=== PATIENT | male | born 1955 | race Caucasian/White ===

== ENCOUNTER 2022-03-28 12:03 | Inpatient (IN) ==
[2022-03-28 13:11] LABS: Basophils # (auto) 0.04 K/uL (0-0.2); Basophils % (auto) 0.8 %; Eosinophils # (auto) 0.06 K/uL (0-0.50); Eosinophils % (auto) 1.2 %; Hemoglobin 15.2 g/dl (14.0-18.0); Immature Granulocytes # (auto) 0.01 K/uL (0.00-0.02); Immature Granulocytes % (auto) 0.2 %; Lymphocytes # (auto) 1.02 K/uL (1.2-3.4); Lymphocytes % (auto) 20.8 %; Mean Corpuscular Hemoglobin 30.2 pg (25.0-34.0); Mean Corpuscular Hgb Conc 35.3 g/dL (32.0-36.0); Mean Corpuscular Volume 85.5 fL (80.0-100.0); Monocytes # (auto) 0.57 K/uL (0.24-0.82); Monocytes % (auto) 11.6 %; Neutrophils % (auto) 65.4 %; Platelet Count 167 K/uL (130-400); RDW Coefficient of Variation 13.3 % (11.5-14.5); RDW Standard Deviation 41.4 fL (36.4-46.3); Red Blood Count 5.03 M/uL (4.63-6.08)
[2022-03-28 13:31] LABS: INR 3.5 (0.9-1.1); Partial Thromboplastin Ratio 1.5; Partial Thromboplastin Time 40.7 Seconds (21.0-31.0); Prothrombin Time 34.7 Seconds (9.0-12.0)
[2022-03-28 13:40] LABS: Troponin I High Sensitivity 5.7 pg/ml (0-20)
[2022-03-28 14:02] LABS: Albumin Globulin Ratio 1.2 (0.9-2); Albumin Level 4.1 gm/dl (3.4-5.0); BUN Creatinine Ratio 22.7 (10-20); Bilirubin,Total 1.5 mg/dl (0.2-1.0); Calcium 9.1 mg/dl (8.5-10.1); Creatinine Clr Calc Pharmacy 76.9 ml/min; Est GFR (African American) 92.6 ml/min; Est GFR (Non-African American) 79.9 ml/min; Globulin 3.4 gm/dl (2.5-4.0); Magnesium 1.9 mg/dl (1.7-2.4); Potassium 3.8 mmol/L (3.5-5.1); Total Protein 7.5 gm/dl (6.0-8.3)
--- NOTE | 2022-03-28 14:40 | XRay Report ---
XR chest 1V portable HISTORY: Shortness of breath. COMPARISON: Chest 03/03/2019. FINDINGS: There are poststernotomy changes. The cardiac silhouette is mildly enlarged. This remains u nchanged. There is a tortuous thoracic aorta. No focal lung consolidations to suggest pneumonia. No e vidence for pulmonary edema. No pleural effusions. No pneumothorax. IMPRESSION: No acute process. ACT 112: Negative or not required by law. Electronically signed by: Giovanny Benson M.D. 03/28/2022 2:38 PM
[2022-03-28] MEDS ORDERED: PHYTONADIONE 2.5 MG in DEXTROSE 5% 50 ML IV STA (16:19)
--- NOTE | 2022-03-28 16:43 | History & Physical Report ---
Date of Service March 28, 2022 Assessment & Plan (1) Chronotropic incompetence: (2) Bradycardia: (3) History of aortic valve replacement: (4) longterm current use of anticoagulant: (5) HLD (hyperlipidemia): (6) Ascending aortic aneurysm: (7) GERD (gastroesophageal reflux disease): Plan This is a 66-year-old male who has significant past medical history of mechanical aortic valve replacement on meterman anticoagulation with goal INR 2.5-3.0, hyperlipidemia, history of SVT, known ascending aortic aneurysm, history of kidney stones who presents to ED at the referral of cardiology due to abnormal heart monitor results. Pt with sx of worsening SOB, easy fatigability, SEBASTIAN and chest pain for the last month or so. He recently underwent ischemic work-up with stress testing and cardiac catheterization which was negative acute occlusion. Outpatient Zio patch improved concern for sinus bradycardia along with probable AV conduction abnormalities. Was referred to ED for evaluation for pacemaker placement. Chronotropic incompetence Sinus bradycardia History of mechanical aortic valve on long-term anticoagulation, goal INR 2.5- 3.0 RBBB Admit to PCU N.p.o. after midnight INR 3.5, discussed with cardiology at bedside and will administer 2.5 mg of IV vitamin K INR in a.m. to determine if INR at goal for pacemaker placement, if not may need additional Vit K Plan pacemaker procedure tomorrow at 1400 hold warfarin this evening - home regimen 7.5 mg Friday, 5 mg all other days, follows [facility] HLD previously on pravastatin, but currently not taking due to lower extremity weakness started CoQ10 instead will defer to cards if they want him to restart his pravastatin post op Glaucoma continue eye gtts Hyperbilirubinemia 1.5, obtain direct bili no abd pain, lfts otherwise unremarkable repeat in a.m. Gerd continue PPI pepcid PRN DVT ppx: pt on warfarin, scds Dispo: PCU, pacemaker procedure tomorrow FULL CODE PCP: Ubaldo Pt was seen and examined in collaboration with Dr. Michael, please see addendum Case discussed with Dr. Gee at bedside. Pt , Mary Olson, at bedside. All questions were answered. History of Present Illness Chief Complaint: Referred by cardiology due to abnormal heart monitor. Primary Care Provider: Kiley Conner, DO This is a 66-year-old male who has significant past medical history of mechanical aortic valve replacement on meterman anticoagulation with goal INR 2.5-3.0, hyperlipidemia, history of SVT, known ascending aortic aneurysm, history of kidney stones who presents to ED at the referral of cardiology due to abnormal heart monitor results. Patient has been experiencing increasing shortness of breath, bradycardia, easy fatigability and dyspnea on exertion. He has been following cardiology and underwent stress testing which showed decreased heart rate response to exercise and also possible ischemia. He then underwent cardiac catheterization which revealed widely patent coronary arteries with minor luminal irregularities. Post cardiac catheterization he was titrated off of his metoprolol which he is now completely off of. Since his heart catheterization he continues to experience episodes of bradycardia with heart rates mostly in the 40s with associated increased fatigue and shortness of breath. He also complains of increased indigestion and belching and is wonderin g if this is related. He further complains of lower extremity muscle weakness after initiation of pravastatin and this was discontinued in favor of co-Q10. A Zio patch was placed and after further review revealed episodes of AV conduction abnormalities. Because of this he was referred to ED for possible evaluation for pacemaker placement. In ED he did remain hemodynamically stable although he was bradycardic. Blood pressure was mildly elevated. His CBC and CMP was generally unremarkable, Mag was 1.9. Chest x-ray showed no acute process. EKG revealed sinus bradycardia at 46 bpm with right bundle branch block. Allergies Allergy/AdvReac Type Severity Reaction Status Date / Time Zbuiqhn-VDL-XeG Reductase AdvReac Weakness Unverified 12/03/19 17:04 Inhibitor [Ierwici-Rlc-Pmb Reductase Inhibitor] Home Medications Medication Instructions Recorded Confirmed Type amoxicillin 500 mg capsule 2,000 mg PO UD PRN dental work 03/28/22 03/28/22 History coenzyme Q10 200 mg capsule (Co 200 mg PO DAILY 03/28/22 03/28/22 History Q-10) cyanocobalamin (vitamin B-12) 500 500 mcg PO DAILY 03/28/22 03/28/22 History mcg tablet (Vitamin B-12) famotidine 20 mg tablet (Pepcid AC) 20 mg PO BID PRN Heartburn 03/28/22 03/28/22 History fexofenadine 180 mg tablet 180 mg PO DAILY 03/28/22 03/28/22 History fluticasone propionate 50 2 spray intranasal DAILY 03/28/22 03/28/22 History mcg/actuation nasal spray,suspension latanoprost 0.005 % eye drops 1 drp ophthalmic (eye) PM 03/28/22 03/28/22 History pantoprazole 20 mg tablet,delayed 20 mg PO DAILY 03/28/22 03/28/22 History release tamsulosin 0.4 mg capsule 0.4 mg PO DAILY 03/28/22 03/28/22 History triamcinolone acetonide 0.1 % 0.1 applic topical BID PRN Rash 03/28/22 03/28/22 History topical cream warfarin 5 mg tablet 5 mg PO SUTUTHSA 03/28/22 03/28/22 History warfarin 5 mg tablet 7.5 mg PO MOWEFR@1600 03/28/22 03/28/22 History Past Med/Surg History Medical History Aortic regurgitation "s/p AVR 1989" Ascending aortic aneurysm "stable 4.6 cm" Dizziness GERD (gastroesophageal reflux disease) HLD (hyperlipidemia) 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 SVT (supraventricular tachycardia) Surgical History History of aortic valve replacement "1989" Hx of colonoscopy Hx of cystoscopy Family History Mother Myocardial infarction Father Lung cancer Myocardial infarction Other Cardiomyopathy Social History Smoking Status: Never smoker Hx Alcohol Use: Yes Alcohol type: beer, wine and hard liquor Alcohol Intake Frequency Comment: rare Hx Substance Use: No Preferred Language: Belarusian Communication Ability: Effective 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 Beliefs That Will Affect Care: None Current Living Situation: Spouse Other Information That Helps Us Care for You: No Feels Safe at Home: Yes Safety Concerns: Feels Safe At This Time Assistive Devices: Glasses Review of Systems Review of Systems: All systems reviewed & are unremarkable except as noted in HPI & below Physical Exam Physical Exam: Constitutional: WD/WN, vitals as above, NAD, sitting up in bed, pleasant, conversing easily Head: Normocephalic, Atraumatic Eyes: PERRL, conjunctivae normal, anicteric sclerae ENMT: external ear and nose normal, oropharynx normal Neck: trachea midline, no thyromegaly normal visual inspection Respiratory: normal respiratory effort, lungs clear to auscultation, no wheeze, rales, rhonchi. Normal insp/exp effort, no accessory muscle use Cardiovascular: RRR, +AV mech click, no edema Vessels: no JVD or carotid bruit Chest: normal inspection of chest Abdomen: normal bowel sounds, soft, nontender, no hepatosplenomegaly Musculoskeletal: no cyanosis or clubbing, extremities motor strength 5/5 Skin: no rashes, warm and dry normal turgor Neurologic: PERRL, EOMI, accommodation nl, no face palsy, no dysarthria CN's II-XI intact bilaterally and moves all extremities Psychiatric: A+Ox3, euthymic affect Lymphatic: no cervical or axillary lymphadenopathy : deferred Results & Data Results & Data ([facility]) Vital Signs (Past 12 Hours) Vital Signs Temp Pulse Pulse Resp BP BP Pulse Ox 03/28/22 16:23 49 L 18 162/84 H 100 03/28/22 15:40 64 23 95 03/28/22 15:30 72 22 96 03/28/22 15:30 149/92 H 03/28/22 15:20 71 22 95 03/28/22 15:10 48 L 21 95 03/28/22 15:00 70 20 96 03/28/22 15:00 149/96 H 03/28/22 14:50 72 19 95 03/28/22 14:40 46 L 18 97 03/28/22 14:30 44 L 19 96 03/28/22 14:30 159/77 H 03/28/22 14:20 41 L 21 97 03/28/22 14:10 65 18 96 03/28/22 14:02 65 18 97 03/28/22 16:04 45 L 18 142/72 H 97 03/28/22 16:09 03/28/22 12:20 36.7 C 47 L 16 150/78 H 96 O2 Del Method 03/28/22 16:23 Room Air 03/28/22 15:40 03/28/22 15:30 03/28/22 15:30 03/28/22 15:20 03/28/22 15:10 03/28/22 15:00 03/28/22 15:00 03/28/22 14:50 03/28/22 14:40 03/28/22 14:30 03/28/22 14:30 03/28/22 14:20 03/28/22 14:10 03/28/22 14:02 03/28/22 16:04 03/28/22 16:09 Room Air 03/28/22 12:20 Room Air Diagnostic Findings Chest X-Ray 03/28/22 12:25 XR chest 1V portable HISTORY: Shortness of breath. COMPARISON: Chest 03/03/2019. FINDINGS: There are poststernotomy changes. The cardiac silhouette is mildly enlarged. This remains unchanged. There is a tortuous thoracic aorta. No focal lung consolidations to suggest pneumonia. No evidence for pulmonary edema. No pleural effusions. No pneumothorax. IMPRESSION: No acute process. ACT 112: Negative or not required by law. Electronically signed by: Giovanny Benson M.D. 03/28/2022 2:38 PM Stress Echo: 02/25/22 LVEF 55 to 59%, LV wall thickness mildly increased, aortic valve mechanical prosthesis present, physiologic intra valvular aortic regurg is present, mild mitral regurg, mild tricuspid regurg, aortic root is borderline enlarged at 3.8 cm, ascending aorta is moderately enlarged at 4.6 cm Date of Service March 01, 2022 DICTATED BY:Elias Ayala, DO Cardiac Cath Report Cardiac Cath Report Procedure: 1. Coronary angiography History: This is a 66-year-old male patient who has had a mechanical aortic valve since the related to bicuspid aortic valve. Recently he has been having some activity related chest pain and underwent an exercise stress echocardiogram and it was abnormal. He has been referred for cardiac catheterization. Procedure summary: After informed consent was obtained the patient was brought to the cardiac catheterization lab where access was obtained using a retrograde Salinger technique from the right radial artery. Preformed 5 Turkish diagnostic catheters were utilized for the coronary angiograms. 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 ACC data: Start time 8:28 AM End time 8:43 AM Opening aortic pressure 109/55 Closing aortic pressure 134/85 LV pressurevalve not crossed Sedation 1 mg intravenous Versed IV fluid 80 cc normal saline Contrast 104 cc Optiray Fluoroscopy time 5.3 minutes Radiation 1240 mGy DAP 129.57 Jaramillo per centimeter squared Right dominant system AUC score 9 Coronary angiography: The coronary anatomy is large in diameter. Injections into the right coronary artery reveal it to be widely patent. Injections in the left coronary artery revealed the left main trunk to be widely patent the left circumflex system consists principally of a large first marginal branch and a smaller second and third marginal branches. The left circumflex system is widely patent. The LAD extends only to the apex of the heart. The LAD gives off a large first diagonal branch and a second smaller diagonal branch. There is minor coronary artery disease at the branch point of the first diagonal branch and LAD however, the LAD is widely patent. Summary: Widely patent coronary anatomy with minor coronary artery disease of the mid LAD as outlined above. Recommendations: Medical management of the patient's coronary artery disease. Medications Administered Medication List Discontinued Medications Phytonadione 2.5 mg/ Dextrose 50.25 mls @ 100.5 mls/hr IV NOW STA Stop: 03/28/22 16:48 Last Admin: 03/28/22 17:21 Dose: 100.5 mls/hr Documented By: KRUPA COVID-19 Results Results COVID-19 Adm Lab Results: RBC 5.03 M/uL (4.63-6.08) 03/28/22 WBC 4.90 K/ul (4.8-10.8) 03/28/22 Hgb 15.2 g/dl (14.0-18.0) 03/28/22 Hct 43.0 % (40.1-51.0) 03/28/22 Plt Count 167 K/uL (130-400) 03/28/22 Neutrophils (%) (Auto) 65.4 % 03/28/22 Lymphocytes (%) (Auto) 20.8 % 03/28/22 Monocytes # (Auto) 0.57 K/uL (0.24-0.82) 03/28/22 Eosinophils # (Auto) 0.06 K/uL (0-0.50) 03/28/22 Immature Granulocyte % (Auto) 0.2 % 03/28/22 Neutrophils # (Auto) 3.20 K/uL (1.4-6.5) 03/28/22 Lymphocytes # (Auto) 1.02 K/uL (1.2-3.4) L 03/28/22 Monocytes # (Auto) 0.57 K/uL (0.24-0.82) 03/28/22 Eosinophils # (Auto) 0.06 K/uL (0-0.50) 03/28/22 Basophils # (Auto) 0.04 K/uL (0-0.2) 03/28/22 Immature Granulocyte # (Auto) 0.01 K/uL (0.00-0.02) 2 Na 139 mmol/L (136-145) 03/28/22 K 3.8 mmol/L (3.5-5.1) 03/28/22 Cl 107 mmol/L (98-107) 03/28/22 CO2 25 mmol/L (21-32) 03/28/22 Anion Gap 7 (3-11) 03/28/22 BUN 22 mg/dl (6-23) 03/28/22 Creatinine 0.97 mg/dl (0.6-1.4) 03/28/22 BUN/Creatinine Ratio 22.7 (10-20) H 03/28/22 Glucose Level 112 mg/dl (70-99(Fasting)) H 03/28/22 Ca 9.1 mg/dl (8.5-10.1) 03/28/22 Total Bilirubin 1.5 mg/dl (0.2-1.0) H 03/28/22 Direct Bilirubin 0.2 mg/dl (0-0.2) 03/28/22 AST/SGOT 23 U/L (13-39) 03/28/22 ALT/SGPT 20 U/L (7-52) 03/28/22 Alkaline Phosphatase 57 U/L (34-104) 03/28/22 Total Protein 7.5 gm/dl (6.0-8.3) 03/28/22 Albumin 4.1 gm/dl (3.4-5.0) 03/28/22 Globulin 3.4 gm/dl (2.5-4.0) 03/28/22 Albumin/Globulin Ratio 1.2 (0.9-2) 03/28/22 PTT 40.7 Seconds (21.0-31.0) H 03/28/22 INR 3.5 (0.9-1.1) H 03/28/22 SARS-CoV-2, RNA, NAAT NEGATIVE (NEGATIVE) 03/28/22 Chest X-Ray 03/28/22 Code Status & VTE Plan Code Status FULL CODE VTE Prophylaxis Plan VTE Prophylaxis will be ordered: Yes Supervising Physician Co-Signing Physician Notes Pt seen and examined by me, care coordinated w/ B. Solo BAPTISTE, pls refer to her note above for further detail. Pt is a 66-year-old M w/ hx of mechanical aortic valve replacement on shelter anticoagulation with goal INR 2.5-3.0, hyperlipidemia, history of SVT, known ascending aortic aneurysm, history of kidney stones who presents to ED at the referral of cardiology due to abnormal heart monitor results. Pt has had worsening shortness of breath, dyspnea on exertion and chest pain for the last month or so. He has been following cardiology and underwent stress testing which showed decreased heart rate response to exercise and also possible ischemia. He also underwent cardiac cath showing Widely patent coronary anatomy with minor coronary artery disease of the mid LAD. Zio patch monitor demonstrates persistent bradycardia and occasional high degree AV block. He was referred to ED for evaluation for pacemaker placement. Currently patient is lying in bed, in no acute distress. He is alert oriented answering questions appropriately. Bradycardic. Mechanical valve sound noted. Lungs are clear to auscultation bilaterally. Pt was seen by cardiology, and it is planned for pacemaker placement tomorrow. INR elevated due to anticoagulation. Vitamin K provided. Repeat INR overnight. Turn Laster aware. MD Alec
[2022-03-28] MEDS ORDERED: ALUMINUM/MAGNESIUM SUSP 30 ML UDC PO PRN (17:00)
[2022-03-28] MEDS ORDERED: FAMOTIDINE 20 MG TAB PO PRN (17:00)
[2022-03-28] MEDS ORDERED: ONDANSETRON INJ 2 MG/ML 2 ML VIAL IV PRN (17:00)
[2022-03-28] MEDS ORDERED: MAGNESIUM HYDROXIDE SUSP 30 ML UDC PO PRN (17:00)
[2022-03-28] MEDS ORDERED: POLYETHYLENE (MIRALAX) 17 GM PACK PO PRN (17:00)
[2022-03-28] MEDS ORDERED: POTASSIUM CHLORIDE CRTAB 20 MEQ TABCR PO STA (17:16)
[2022-03-28] MEDS ORDERED: MAGNESIUM SULFATE / D5W 1 GM/100 ML BAG IV ONE (17:16)
[2022-03-28] MEDS ORDERED: PROMETHAZINE HCL 6.25 MG in SODIUM CHLORIDE 0.9% 50 ML IV PRN (17:19)
--- NOTE | 2022-03-28 17:21 | Cardiology Consultation ---
Date of Consultation March 28, 2022 Assessment & Plan (1) Bradycardia: (2) Chronotropic incompetence: (3) History of aortic valve replacement: (4) Ascending aortic aneurysm: Plan Patient is a 66-year-old male with longstanding cardiac issues including prior remote aortic valve replacement with mechanical prosthesis functioning normally. Patient's had recent symptoms of marked fatigue exertional dyspnea and findings consistent with chronotropic incompetence, symptomatic bradycardia as well as intermittent AV block on recent event monitor. Plan: Patient will be admitted onto telemetry with anticipated pacemaker insertion this admission. EP already consulted INR is mildly elevated we will give 2.5 mg vitamin K today repeat INR in a.m. N.p.o. after midnight with anticipated procedure tomorrow afternoon Discussed in detail with patient and History of Present Illness Reason for Consultation: Bradycardia, chronotropic incompetence Requesting Physician: Dr. Michael Attending Physician: Nav Michael MD History of Present Illness Patient is a 66-year-old male with ongoing issues which include 1. Symptomatic bradycardia, chronotropic incompetence 2. Status post aortic valve replacement 1989, mechanical prosthesis 3.Minimal coronary atherosclerosis by cardiac catheterization February 2022 4. Right bundle branch block 5. Dilated ascending aorta 6. Renal lithiasis. Patient presents now with persistent symptoms of fatigue especially with exertion and marked bradycardia on home monitors. He recently underwent extensive evaluation including cardiac catheterization. Zio patch monitor demonstrates persistent bradycardia and occasional high degree AV block. Patient significantly symptomatic with marked fatigue with exertion more than 100 feet. Occasional lightheadedness but no syncope. No fevers chills or on explained infection. No bleeding difficulties. Appetite and weight are generally stable. Tolerating current medical therapies. Appropriately anticoagulated Right radial access site from recent cardiac catheterization well-healed Allergies Allergy/AdvReac Type Severity Reaction Status Date / Time Vykjcsy-XAS-XwD Reductase AdvReac Weakness Unverified 12/03/19 17:04 Inhibitor [Vjfcciu-Pyj-Dcz Reductase Inhibitor] Home Medications Medication Instructions Recorded Confirmed Type amoxicillin 500 mg capsule 2,000 mg PO UD PRN dental work 03/28/22 03/28/22 History coenzyme Q10 200 mg capsule (Co 200 mg PO DAILY 03/28/22 03/28/22 History Q-10) cyanocobalamin (vitamin B-12) 500 500 mcg PO DAILY 03/28/22 03/28/22 History mcg tablet (Vitamin B-12) famotidine 20 mg tablet (Pepcid AC) 20 mg PO BID PRN Heartburn 03/28/22 03/28/22 History fexofenadine 180 mg tablet 180 mg PO DAILY 03/28/22 03/28/22 History fluticasone propionate 50 2 spray intranasal DAILY 03/28/22 03/28/22 History mcg/actuation nasal spray,suspension latanoprost 0.005 % eye drops 1 drp ophthalmic (eye) PM 03/28/22 03/28/22 History pantoprazole 20 mg tablet,delayed 20 mg PO DAILY 03/28/22 03/28/22 History release tamsulosin 0.4 mg capsule 0.4 mg PO DAILY 03/28/22 03/28/22 History triamcinolone acetonide 0.1 % 0.1 applic topical BID PRN Rash 03/28/22 03/28/22 History topical cream warfarin 5 mg tablet 5 mg PO SUTUTHSA 03/28/22 03/28/22 History warfarin 5 mg tablet 7.5 mg PO MOWEFR@1600 03/28/22 03/28/22 History Patient History Medical History Aortic regurgitation "s/p AVR 1989" Ascending aortic aneurysm "stable 4.6 cm" Dizziness GERD (gastroesophageal reflux disease) HLD (hyperlipidemia) 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 SVT (supraventricular tachycardia) Surgical History History of aortic valve replacement "1989" Hx of colonoscopy Hx of cystoscopy Family History Mother Myocardial infarction Father Lung cancer Myocardial infarction Other Cardiomyopathy Social History Smoking Status: Never smoker Hx Alcohol Use: Yes Alcohol type: beer, wine and hard liquor Alcohol Intake Frequency Comment: rare Hx Substance Use: No Preferred Language: Spanish Communication Ability: Effective 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 Beliefs That Will Affect Care: None Current Living Situation: Spouse Other Information That Helps Us Care for You: No Feels Safe at Home: Yes Safety Concerns: Feels Safe At This Time Assistive Devices: Glasses Review of Systems Review of Systems: All systems reviewed & are unremarkable except as noted in HPI & below Physical Exam Constitutional: WD/WN, vitals as above no acute distress Eyes: PERRL, conjunctivae normal, anicteric sclerae ENMT: external ear and nose normal, oropharynx normal Neck: trachea midline, no thyromegaly Respiratory: Few crackles right base that clear with cough otherwise clear Cardiovascular: Rate/Rhythm: regular rate, regular rhythm and + bradycardic Palpation: normal PMI Vessels: radial pulses present (Right radial access site intact); no JVD Extremities: no edema Roosevelt mechanical valve sounds with grade 1/6 systolic murmur no diastolic murmur Gastrointestinal (Abdomen): normal bowel sounds, soft, nontender, no hepatosplenomegaly Musculoskeletal: no cyanosis or clubbing, extremities motor strength 5/5 Results & Data ([facility]) Vital Signs (Past 12 Hours) Vital Signs Temp Pulse Pulse Resp BP BP Pulse Ox 03/28/22 17:02 03/28/22 17:02 36.8 C 42 L 18 161/82 H 96 03/28/22 16:23 49 L 18 162/84 H 100 03/28/22 15:40 64 23 95 03/28/22 15:30 72 22 96 03/28/22 15:30 149/92 H 03/28/22 15:20 71 22 95 03/28/22 15:10 48 L 21 95 03/28/22 15:00 70 20 96 03/28/22 15:00 149/96 H 03/28/22 14:50 72 19 95 03/28/22 14:40 46 L 18 97 03/28/22 14:30 44 L 19 96 03/28/22 14:30 159/77 H 03/28/22 14:20 41 L 21 97 03/28/22 14:10 65 18 96 03/28/22 14:02 65 18 97 03/28/22 16:04 45 L 18 142/72 H 97 03/28/22 16:09 03/28/22 12:20 36.7 C 47 L 16 150/78 H 96 O2 Del Method 03/28/22 17:02 Room Air 03/28/22 17:02 Room Air 03/28/22 16:23 Room Air 03/28/22 15:40 03/28/22 15:30 03/28/22 15:30 03/28/22 15:20 03/28/22 15:10 03/28/22 15:00 03/28/22 15:00 03/28/22 14:50 03/28/22 14:40 03/28/22 14:30 03/28/22 14:30 03/28/22 14:20 03/28/22 14:10 03/28/22 14:02 03/28/22 16:04 03/28/22 16:09 Room Air 03/28/22 12:20 Room Air Laboratory Results Laboratory Results - last 24 hr 03/28/22 03/28/22 03/28/22 12:55 12:55 12:55 WBC 4.90 RBC 5.03 Hgb 15.2 Hct 43.0 MCV 85.5 MCH 30.2 MCHC 35.3 RDW Std Deviation 41.4 RDW Coeff of Wilver 13.3 Plt Count 167 MPV 10.0 Immature Gran % (Auto) 0.2 Neut % (Auto) 65.4 Lymph % (Auto) 20.8 Barron % (Auto) 11.6 Eos % (Auto) 1.2 Baso % (Auto) 0.8 Neut # (Auto) 3.20 Lymph # (Auto) 1.02 L Barron # (Auto) 0.57 Eos # (Auto) 0.06 Baso # (Auto) 0.04 Immature Gran # (Auto) 0.01 PT 34.7 H INR 3.5 H APTT 40.7 H PTT Ratio 1.5 Sodium 139 Potassium 3.8 Chloride 107 Carbon Dioxide 25 Anion Gap 7 BUN 22 Creatinine 0.97 Est Cr Clr Drug Dosing 76.9 Est GFR ( Amer) 92.6 Est GFR (Non-Af Amer) 79.9 BUN/Creatinine Ratio 22.7 H Glucose 112 H Calcium 9.1 Magnesium 1.9 Total Bilirubin 1.5 H AST 23 ALT 20 Alkaline Phosphatase 57 Troponin I High Sens 5.7 Total Protein 7.5 Albumin 4.1 Globulin 3.4 Albumin/Globulin Ratio 1.2 SARS-CoV-2, RNA, NAAT 03/28/22 14:57 WBC RBC Hgb Hct MCV MCH MCHC RDW Std Deviation RDW Coeff of Wilver Plt Count MPV Immature Gran % (Auto) Neut % (Auto) Lymph % (Auto) Barron % (Auto) Eos % (Auto) Baso % (Auto) Neut # (Auto) Lymph # (Auto) Barron # (Auto) Eos # (Auto) Baso # (Auto) Immature Gran # (Auto) PT INR APTT PTT Ratio Sodium Potassium Chloride Carbon Dioxide Anion Gap BUN Creatinine Est Cr Clr Drug Dosing Est GFR ( Amer) Est GFR (Non-Af Amer) BUN/Creatinine Ratio Glucose Calcium Magnesium Total Bilirubin AST ALT Alkaline Phosphatase Troponin I High Sens Total Protein Albumin Globulin Albumin/Globulin Ratio SARS-CoV-2, RNA, NAAT NEGATIVE Diagnostic Findings Zio patch event monitor reported 03/28/2022 A Zio patch XT monitor was worn for 7 days ranging from 03/15/2022 until 03/22/2022 for the evaluation of bradycardia. Patient had a min HR of 39 bpm, max HR of 156 bpm, and avg HR of 69 bpm. Predominant underlying rhythm was Sinus Rhythm. First Degree AV Block was present. Bundle Branch Block/IVCD was present. 1 run of Ventricular Tachycardia occurred lasting 4 beats with a max rate of 156 bpm (avg 110 bpm). 798 episode(s) of AV Block (2nd Mobitz II, High Grade and 3rd) occurred, lasting a total of 2 days 17 hours. AV Block (2nd Mobitz II and High Grade) and AV Block (3rd) were detected within +/- 45 seconds of symptomatic patient event(s). Isolated SVEs were rare (<1.0%), and no SVE Couplets or SVE Triplets were present. Isolated VEs were rare (<1.0%), VE Couplets were rare (<1.0%), and no VE Triplets were present. Ventricular Bigeminy and Trigeminy were present. MD notification criteria for Complete Heart Block, Symptomatic Second Degree AV Block Mobitz II and High Grade AV Block met - report posted prior to notification per account request (DI). Sixty-four patient triggered events and 50 diary events were submitted that correlated with atrial ventricular block with ventricular rates ranging from 42 beats per minute to 116 beats per minute, supraventricular ectopic beats, and ventricular ectopic beats. ECG Additional Comments: EKG 03/28/2022: Sinus bradycardia with right bundle branch block rate 46 bpm
--- NOTE | 2022-03-28 18:52 | Emergency Department Note ---
History of Present Illness General Chief Complaint: Shortness of Breath/Dyspnea Stated Complaint: DR REF SOB HIGH PULSE RATE Time Seen by Provider: 03/28/22 13:43 History of Present Illness Provider Complaint: chest pain Onset (ago): week(s) Onset (Weeks): 2 Duration: intermittent Onset: during rest Pain Location: substernal Pain Radiation: none Current Pain Intensity: 0 Quality: + aching Relieved By: + nothing Exacerbated By: + nothing Context: no recent illness, no recent surgery, no recent travel, no trauma/injury or no history of DVT/PE Associated symptoms: + dyspnea and + palpitations; no nausea, no vomiting, no diaphoresis, no syncope, no fever, no cough or no leg swelling Home Medications Medication Instructions Recorded Confirmed Type amoxicillin 500 mg capsule 2,000 mg PO UD PRN dental work 03/28/22 03/28/22 History coenzyme Q10 200 mg capsule (Co 200 mg PO DAILY 03/28/22 03/28/22 History Q-10) cyanocobalamin (vitamin B-12) 500 500 mcg PO DAILY 03/28/22 03/28/22 History mcg tablet (Vitamin B-12) famotidine 20 mg tablet (Pepcid AC) 20 mg PO BID PRN Heartburn 03/28/22 03/28/22 History fexofenadine 180 mg tablet 180 mg PO DAILY 03/28/22 03/28/22 History fluticasone propionate 50 2 spray intranasal DAILY 03/28/22 03/28/22 History mcg/actuation nasal spray,suspension latanoprost 0.005 % eye drops 1 drp ophthalmic (eye) PM 03/28/22 03/28/22 History pantoprazole 20 mg tablet,delayed 20 mg PO DAILY 03/28/22 03/28/22 History release tamsulosin 0.4 mg capsule 0.4 mg PO DAILY 03/28/22 03/28/22 History triamcinolone acetonide 0.1 % 0.1 applic topical BID PRN Rash 03/28/22 03/28/22 History topical cream warfarin 5 mg tablet 5 mg PO SUTUTHSA 03/28/22 03/28/22 History warfarin 5 mg tablet 7.5 mg PO MOWEFR@1600 03/28/22 03/28/22 History Allergies Allergy/AdvReac Type Severity Reaction Status Date / Time Ldhsnoa-LXR-PtM Reductase AdvReac Weakness Unverified 12/03/19 17:04 Inhibitor [Qvpljld-Hdb-Ecu Reductase Inhibitor] Past Med/Surg History Medical History Aortic regurgitation "s/p AVR 1989" Ascending aortic aneurysm "stable 4.6 cm" Dizziness GERD (gastroesophageal reflux disease) HLD (hyperlipidemia) 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 SVT (supraventricular tachycardia) Surgical History History of aortic valve replacement "1989" Hx of colonoscopy Hx of cystoscopy Family History Mother Myocardial infarction Father Lung cancer Myocardial infarction Other Cardiomyopathy Social History Smoking Status: Never smoker Hx Alcohol Use: Yes Alcohol type: beer, wine and hard liquor Alcohol Intake Frequency Comment: rare Hx Substance Use: No Preferred Language: Hungarian Communication Ability: Effective 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 Beliefs That Will Affect Care: None Current Living Situation: Spouse Other Information That Helps Us Care for You: No Feels Safe at Home: Yes Safety Concerns: Feels Safe At This Time Assistive Devices: Glasses Review of Systems A total of 10 systems reviewed and were otherwise negative Physical Exam Vital Signs Vital Signs - 24 hr 03/28/22 12:20 03/28/22 14:02 03/28/22 14:10 Temperature 36.7 C Temperature Source Temporal Artery Scan Pulse Rate 47 L 65 65 Pulse Rate from SpO2 Sensor 65 65 Respiratory Rate 16 18 18 Respiratory Effort / Characteristics Non-Labored Spontaneous Respiratory Depth Normal Respiratory Pattern Regular Blood Pressure 150/78 H Blood Pressure Mean 102 Blood Pressure Position Sitting Pulse Oximetry 96 97 96 Oxygen Delivery Method Room Air Sepsis Recent Fever Within 48 Hours No Sepsis New/Unexplained Change in Mental Status No Sepsis Action Taken by Nursing No Action Required 03/28/22 14:20 03/28/22 14:30 03/28/22 14:30 Temperature Temperature Source Pulse Rate 41 L 44 L Pulse Rate from SpO2 Sensor 41 L 43 L Respiratory Rate 21 19 Respiratory Effort / Characteristics Respiratory Depth Respiratory Pattern Blood Pressure 159/77 H Blood Pressure Mean 104 Blood Pressure Position Pulse Oximetry 97 96 Oxygen Delivery Method Sepsis Recent Fever Within 48 Hours Sepsis New/Unexplained Change in Mental Status Sepsis Action Taken by Nursing 03/28/22 14:40 03/28/22 14:50 Temperature Temperature Source Pulse Rate 46 L 72 Pulse Rate from SpO2 Sensor 45 L 71 Respiratory Rate 18 19 Respiratory Effort / Characteristics Respiratory Depth Respiratory Pattern Blood Pressure Blood Pressure Mean Blood Pressure Position Pulse Oximetry 97 95 Oxygen Delivery Method Sepsis Recent Fever Within 48 Hours Sepsis New/Unexplained Change in Mental Status Sepsis Action Taken by Nursing Physical Exam GENERAL: He is oriented to person, place, and time. He appears well-developed and well-nourished. He does not appear distressed. HENT: Exam performed. - Head: Normocephalic and atraumatic. - Right Ear: External ear normal. No mastoid tenderness. - Left Ear: External ear normal. No mastoid tenderness. - Mouth/Throat: The oropharynx is clear and moist. No trismus in the jaw. No dental abscesses or uvula swelling. No oropharyngeal exudate or tonsillar abscesses. EYES: Conjunctivae and EOM are normal. Pupils are equal, round, and reactive to light. Right eye exhibits no discharge. Left eye exhibits no discharge. No scleral icterus. NECK: Normal range of motion. Neck supple. No JVD present. No spinous process tenderness present. No carotid bruit present. No rigidity. No tracheal deviation and normal range of motion present. No Brudzinski's sign and no Kernig's sign noted. CV: Normal rate, regular rhythm, normal heart sounds and intact distal pulses. There is no peripheral edema. Palpable radial pulses bue. PULM/CHEST: Effort normal and breath sounds normal. No respiratory distress. No stridor. He has no wheezes. He has no rales. - Chest Wall: He exhibits no tenderness. ABD: The abdomen is soft. Bowel sounds are normal. He has no distension. No mass is present. There is no tenderness. There is no rebound, no guarding, no Wagoner's sign and no tenderness at McBurney's point. Rovsig negative. MUSC/SKEL: Normal range of motion. There is no peripheral edema, tenderness or deformity. LYMPH: No cervical adenopathy. NEURO: He is alert and oriented to person, place, and time. He has normal streng th. No cranial nerve deficit or sensory deficit. Coordination and gait normal. GCS eye subscore is 4. GCS verbal subscore is 5. GCS motor subscore is 6. Cerebellar tests wnl. SKIN: Skin is warm and dry. He is not diaphoretic. PSYCH: He has a normal mood and affect. Behavior is normal. Judgment and thought content normal. Course Course 1343: The patient was evaluated in room C8. A complete history and physical exam was performed Cardiac monitoring: An order was placed for continuous cardiac monitoring. The monitor shows a rate of 50 with sinus rhythm 1350: Received a call from the patient's cardiology team Dr. Hearn. He recommends admitting the patient to the hospitalist service and have [facility] cardiology evaluate the patient inpatient. We will plan on executing this plan. Administered Medications Magnesium Sulfate/Dextrose (Magnesium Sulfate / D5w) 1 gm in 100 mls @ 50 mls/hr IV ONE ONE Stop: 03/28/22 19:15 Last Admin: 03/28/22 17:57 Dose: 50 mls/hr Documented By: KRUPA Discontinued Medications Phytonadione 2.5 mg/ Dextrose 50.25 mls @ 100.5 mls/hr IV NOW STA Stop: 03/28/22 16:48 Last Infusion: 03/28/22 18:04 Dose: 0 mls/hr Documented By: Admin: 03/28/22 17:21 Dose: 100.5 mls/hr Documented By: KRUPA Potassium Chloride (Potassium Chloride Crtab 20 Meq Tabcr) 40 meq PO NOW STA Stop: 03/28/22 17:17 Last Admin: 03/28/22 17:43 Dose: 40 meq Documented By: KRUPA Medical Decision Making Laboratory Data Result diagrams: 03/28/22 12:55 03/28/22 12:55 Labs: Lab Results 03/28/22 03/28/22 03/28/22 Range/Units 12:55 12:55 12:55 WBC 4.90 (4.8-10.8) K/ul RBC 5.03 (4.63-6.08) M/uL Hgb 15.2 (14.0-18.0) g/dl Hct 43.0 (40.1-51.0) % MCV 85.5 (80.0-100.0) fL MCH 30.2 (25.0-34.0) pg MCHC 35.3 (32.0-36.0) g/dL RDW Std Deviation 41.4 (36.4-46.3) fL RDW Coeff of Wilver 13.3 (11.5-14.5) % Plt Count 167 (130-400) K/uL MPV 10.0 (9.4-12.4) fL Immature Gran % (Auto) 0.2 % Neut % (Auto) 65.4 % Lymph % (Auto) 20.8 % Wilcox % (Auto) 11.6 % Eos % (Auto) 1.2 % Baso % (Auto) 0.8 % Neut # (Auto) 3.20 (1.4-6.5) K/uL Lymph # (Auto) 1.02 L (1.2-3.4) K/uL Wilcox # (Auto) 0.57 (0.24-0.82) K/uL Eos # (Auto) 0.06 (0-0.50) K/uL Baso # (Auto) 0.04 (0-0.2) K/uL Immature Gran # (Auto) 0.01 (0.00-0.02) K/uL PT 34.7 H (9.0-12.0) Seconds INR 3.5 H (0.9-1.1) APTT 40.7 H (21.0-31.0) Seconds PTT Ratio 1.5 Sodium 139 (136-145) mmol/L Potassium 3.8 (3.5-5.1) mmol/L Chloride 107 (98-107) mmol/L Carbon Dioxide 25 (21-32) mmol/L Anion Gap 7 (3-11) BUN 22 (6-23) mg/dl Creatinine 0.97 (0.6-1.4) mg/dl Est Cr Clr Drug Dosing 76.9 ml/min Est GFR ( Amer) 92.6 ml/min Est GFR (Non-Af Amer) 79.9 ml/min BUN/Creatinine Ratio 22.7 H (10-20) Glucose 112 H (70-99(Fasting)) mg/dl Calcium 9.1 (8.5-10.1) mg/dl Magnesium 1.9 (1.7-2.4) mg/dl Total Bilirubin 1.5 H (0.2-1.0) mg/dl AST 23 (13-39) U/L ALT 20 (7-52) U/L Alkaline Phosphatase 57 (34-104) U/L Troponin I High Sens 5.7 (0-20) pg/ml Total Protein 7.5 (6.0-8.3) gm/dl Albumin 4.1 (3.4-5.0) gm/dl Globulin 3.4 (2.5-4.0) gm/dl Albumin/Globulin Ratio 1.2 (0.9-2) Imaging Data Chest x-ray: Radiologist's impression: Chest X-Ray 03/28/22 12:25 XR chest 1V portable HISTORY: Shortness of breath. COMPARISON: Chest 03/03/2019. FINDINGS: There are poststernotomy changes. The cardiac silhouette is mildly enlarged. This remains unchanged. There is a tortuous thoracic aorta. No focal lung consolidations to suggest pneumonia. No evidence for pulmonary edema. No pleural effusions. No pneumothorax. IMPRESSION: No acute process. ACT 112: Negative or not required by law. Electronically signed by: Giovanny Benson M.D. 03/28/2022 2:38 PM ECG Data Indication: chest pain Rate (beats per minute): 46 Rhythm: sinus bradycardia Findings: + 1st degree AV block and + RBBB; no ST depression, no ST elevation or no prolonged QT Additional Comments: QRS 148 MDM Narrative 1343: The patient was evaluated in room C8. A complete history and physical exam was performed Cardiac monitoring: An order was placed for continuous cardiac monitoring. The monitor shows a rate of 50 with sinus rhythm 1350: Received a call from the patient's cardiology team Dr. Hearn. He recommends admitting the patient to the hospitalist service and have [facility] cardiology evaluate the patient inpatient. We will plan on executing this plan. Impression & Plan Bradycardia, Chest pain Discharge Plan Visit Data Chief Complaint: Shortness of Breath/Dyspnea Stated Complaint: DR NOLASCO SOB HIGH PULSE RATE ED Provider: Juan Cleary Discharge Problem: Bradycardia, Chest pain Patient Disposition: Admitted As Inpatient Discharge Instructions Interventions: ED Discharge Assessment Last Done: 03/28/22 16:23
[2022-03-28] MEDS: LATANOPROST 0.005% OP SOLN 2.5 ML BTL OP SCH (20:08)
[2022-03-28] MEDS ORDERED: SIMETHICONE 80 MG CHEW PO PRN (20:19)
[2022-03-28] MEDS ORDERED: SIMETHICONE 80 MG CHEW PO ONE (20:20)
[2022-03-28] MEDS: ACETAMINOPHEN 325 MG TAB PO PRN (20:38)
[2022-03-29 02:57] LABS: Basophils # (auto) 0.03 K/uL (0-0.2); Basophils % (auto) 0.6 %; Eosinophils # (auto) 0.12 K/uL (0-0.50); Eosinophils % (auto) 2.3 %; Hematocrit (blood only) 41.8 % (40.1-51.0); Hemoglobin 14.3 g/dl (14.0-18.0); Immature Granulocytes # (auto) 0.02 K/uL (0.00-0.02); Immature Granulocytes % (auto) 0.4 %; Lymphocytes # (auto) 1.45 K/uL (1.2-3.4); Lymphocytes % (auto) 28.2 %; Mean Corpuscular Hemoglobin 29.9 pg (25.0-34.0); Mean Corpuscular Hgb Conc 34.2 g/dL (32.0-36.0); Mean Corpuscular Volume 87.3 fL (80.0-100.0); Mean Platelet Volume 10.3 fL (9.4-12.4); Monocytes # (auto) 0.66 K/uL (0.24-0.82); Monocytes % (auto) 12.8 %; Neutrophils # (auto) 2.87 K/uL (1.4-6.5); Neutrophils % (auto) 55.7 %; Platelet Count 166 K/uL (130-400); RDW Coefficient of Variation 13.2 % (11.5-14.5); RDW Standard Deviation 41.8 fL (36.4-46.3); Red Blood Count 4.79 M/uL (4.63-6.08); White Blood Count 5.15 K/ul (4.8-10.8)
[2022-03-29 03:08] LABS: INR 2.1 (0.9-1.1); Prothrombin Time 21.6 Seconds (9.0-12.0)
[2022-03-29 03:18] LABS: Albumin Globulin Ratio 1.4 (0.9-2); Albumin Level 4.1 gm/dl (3.4-5.0); BUN Creatinine Ratio 21.2 (10-20); Bilirubin,Total 1.8 mg/dl (0.2-1.0); Calcium 8.7 mg/dl (8.5-10.1); Creatinine Clr Calc Pharmacy 71.1 ml/min; Est GFR (African American) 85.1 ml/min; Est GFR (Non-African American) 73.4 ml/min; Magnesium 2.3 mg/dl (1.7-2.4); Potassium 3.9 mmol/L (3.5-5.1); Total Protein 7.1 gm/dl (6.0-8.3)
--- NOTE | 2022-03-29 05:13 | Electrocardiogram Report ---
Test Reason : Blood Pressure : / mmHG Vent. Rate : 046 BPM Atrial Rate : 092 BPM P-R Int : 208 ms QRS Dur : 148 ms QT Int : 546 ms P-R-T Axes : 058 -42 034 degrees QTc Int : 477 ms Sinus rhythm with 2:1 AV block Left axis deviation Right bundle branch block Abnormal ECG When compared with ECG of 03-MAR-2019 06:19, Vent. rate has decreased BY 37 BPM 2:1 AV block is now present Confirmed by Avinash Valderrama ([id number]) on 03/29/2022 5:12:51 AM Referred By: Confirmed By:Avinash Valderrama
[2022-03-29] MEDS ORDERED: PHYTONADIONE 5 MG in DEXTROSE 5% 50 ML IV ONE (06:45)
[2022-03-29] MEDS: CYANOCOBALAMIN (B-12) 500 MCG TABLET PO SCH (07:29)
[2022-03-29] MEDS: FLUTICASONE PROPIONATE NA SPR 16 GM BTL NAE SCH (07:30)
[2022-03-29] MEDS: FEXOFENADINE HCL 180 MG TAB PO SCH (07:30)
[2022-03-29] MEDS: PANTOprazole 40 MG TAB PO SCH (07:31)
[2022-03-29] MEDS: TAMSULOSIN HCL 0.4 MG CAP PO SCH (07:31)
[2022-03-29] MEDS ORDERED: NON-FORMULARY MEDICATION (Coenzyme Q10 [Co Q-10] 200 mg Capsule) PO SCH (09:00)
--- NOTE | 2022-03-29 09:15 | Cardiology Progress Note ---
Date of Service March 29, 2022 Assessment & Plan (1) Bradycardia: (2) Chronotropic incompetence: (3) History of aortic valve replacement: (4) Ascending aortic aneurysm: Plan Patient is a 66-year-old male with longstanding cardiac issues including prior remote aortic valve replacement with mechanical prosthesis functioning normally. Patient's had recent symptoms of marked fatigue exertional dyspnea and findings consistent with chronotropic incompetence, symptomatic bradycardia as well as intermittent AV block on recent event monitor. Plan: Patient will be admitted onto telemetry with anticipated pacemaker insertion this admission. EP already consulted INR is mildly elevated we will give 2.5 mg vitamin K today repeat INR in a.m. N.p.o. after midnight with anticipated procedure tomorrow afternoon Discussed in detail with patient and Admission and Anticipated Discharge Date Admission Date: March 28, 2022 Results & Data ([facility]) Vital Signs (Past 12 Hours) Vital Signs Temp Pulse Pulse Resp BP Pulse Ox O2 Del Method 03/29/22 08:00 36.4 C L 36 L 16 129/67 95 03/29/22 07:16 58 L 03/29/22 03:20 36.5 C 59 L 18 126/78 95 Room Air 03/28/22 23:08 51 L 03/28/22 23:02 36.7 C 44 L 20 128/78 92 Room Air
[2022-03-29] MEDS: ACETAMINOPHEN 325 MG TAB PO PRN ×2 (09:48→17:17)
[2022-03-29] MEDS ORDERED: BUPIVACAINE 0.25% 30 ML VIAL ONE (13:57)
[2022-03-29] MEDS ORDERED: WATER, STERILE FOR INJ 10 ML VIAL ONE ×3 (13:57→14:07)
[2022-03-29] MEDS ORDERED: VANCOMYCIN HCL 1000MG/20ML VIAL ONE ×3 (13:57→14:07)
[2022-03-29] MEDS ORDERED: LIDOCAINE 1% LOCAL 20 ML VIAL ONE (13:57)
[2022-03-29] MEDS ORDERED: ceFAZolin 330 MG/ML 1 GM VIAL ONE (13:59)
[2022-03-29] MEDS ORDERED: fentaNYL citrate 100 MCG/2 ML VIAL ONE (13:59)
[2022-03-29] MEDS ORDERED: MIDAZOLAM HCL 5 MG/ML 1 ML VIAL ONE (13:59)
--- NOTE | 2022-03-29 14:05 | Pre Anesthesia Assessment ---
Date of Service March 29, 2022 Pre Sedation Assessment Vital Signs Temp Pulse Pulse Resp BP BP Pulse Ox 03/29/22 14:01 41 L 16 128/74 98 03/29/22 11:00 36.5 C 45 L 18 150/79 H 97 03/29/22 08:00 36.4 C L 36 L 16 129/67 95 03/29/22 07:16 58 L 03/29/22 03:20 36.5 C 59 L 18 126/78 95 03/28/22 23:08 51 L 03/28/22 23:02 36.7 C 44 L 20 128/78 92 03/28/22 19:33 36.9 C 44 L 20 130/66 92 03/28/22 17:44 46 L 03/28/22 17:02 03/28/22 17:02 36.8 C 42 L 18 161/82 H 96 03/28/22 16:23 49 L 18 162/84 H 100 03/28/22 15:40 64 23 95 03/28/22 15:30 72 22 96 03/28/22 15:30 149/92 H 03/28/22 15:20 71 22 95 03/28/22 15:10 48 L 21 95 03/28/22 15:00 70 20 96 03/28/22 15:00 149/96 H 03/28/22 14:50 72 19 95 03/28/22 14:40 46 L 18 97 03/28/22 14:30 44 L 19 96 03/28/22 14:30 159/77 H 03/28/22 14:20 41 L 21 97 03/28/22 14:10 65 18 96 03/28/22 16:04 45 L 18 142/72 H 97 03/28/22 16:09 O2 Del Method 03/29/22 14:01 Room Air 03/29/22 11:00 03/29/22 08:00 03/29/22 07:16 03/29/22 03:20 Room Air 03/28/22 23:08 03/28/22 23:02 Room Air 03/28/22 19:33 Room Air 03/28/22 17:44 03/28/22 17:02 Room Air 03/28/22 17:02 Room Air 03/28/22 16:23 Room Air 03/28/22 15:40 03/28/22 15:30 03/28/22 15:30 03/28/22 15:20 03/28/22 15:10 03/28/22 15:00 03/28/22 15:00 03/28/22 14:50 03/28/22 14:40 03/28/22 14:30 03/28/22 14:30 03/28/22 14:20 03/28/22 14:10 03/28/22 16:04 03/28/22 16:09 Room Air Cardiovascular + bradycardic Respiratory normal respiratory effort, lungs clear to auscultation Pre-Sedation Airway Assessment Smoking Status: Never smoker Short, Thick Neck: Yes Thyromental Distance: > or= 3.5 Finger Breadths Oral Cavity: + WNL Mallampati Class: III ASA: ASA3 NPO Status Date of Last Intake of Fluids: 03/29/22 Time of Last Intake of Fluids: 07:30 Date of Last Intake of Solid Food: 03/28/22 Procedure Planning Contraindications for Sedation: none Current Medications Reviewed: Yes Notes The planned sedation has been discussed with the patient. Informed Consent was obtained. I have identified the patient, determined the appropriateness of sedation and have assessed the patient immediately prior to the procedure. All medicine(s) and interventions are by my order.
--- NOTE | 2022-03-29 14:05 | History & Physical Bridge Note ---
Date of Service March 29, 2022 History & Physical Bridge Note I have examined the patient, reviewed the History & Physical and in the interval since the performance of the History & Physical I have noted the following changes of clinical significance: no changes noted; pt with marked bradycardia for a pacemaker; i discussed the procedure and potential risks with the pt he expressed an understanding and consents signed
--- NOTE | 2022-03-29 15:30 | Operative Report ---
Post Operative Report Pre & Post Diagnosis CHB Operation Date: 03/29/22 14:00 <No data on this case meets the specified criteria> I identified the patient and participated in the time-out.: Yes Procedure Operation Date: 03/29/22 14:00 <No data on this case meets the specified criteria> Surgeon Radha Menjivar, DO Rehabilitation Services Manager none Estimated Blood Loss 40 Findings Consistent with Post-Op Diagnosis Specimens none Description of Procedure see official report I attest to the content of the Intraoperative Record and any orders documented therein. Any exceptions are noted below.
--- NOTE | 2022-03-29 15:30 | Post Anesthesia Assessment ---
Date of Service March 29, 2022 Post Sedation Assessment Vital Signs Temp Pulse Pulse Resp BP BP Pulse Ox 03/29/22 14:01 41 L 16 128/74 98 03/29/22 11:00 36.5 C 45 L 18 150/79 H 97 03/29/22 08:00 36.4 C L 36 L 16 129/67 95 03/29/22 07:16 58 L 03/29/22 03:20 36.5 C 59 L 18 126/78 95 03/28/22 23:08 51 L 03/28/22 23:02 36.7 C 44 L 20 128/78 92 03/28/22 19:33 36.9 C 44 L 20 130/66 92 03/28/22 17:44 46 L 03/28/22 17:02 03/28/22 17:02 36.8 C 42 L 18 161/82 H 96 03/28/22 16:23 49 L 18 162/84 H 100 03/28/22 15:40 64 23 95 03/28/22 15:30 72 22 96 03/28/22 15:30 149/92 H 03/28/22 16:04 45 L 18 142/72 H 97 03/28/22 16:09 O2 Del Method 03/29/22 14:01 Room Air 03/29/22 11:00 03/29/22 08:00 03/29/22 07:16 03/29/22 03:20 Room Air 03/28/22 23:08 03/28/22 23:02 Room Air 03/28/22 19:33 Room Air 03/28/22 17:44 03/28/22 17:02 Room Air 03/28/22 17:02 Room Air 03/28/22 16:23 Room Air 03/28/22 15:40 03/28/22 15:30 03/28/22 15:30 03/28/22 16:04 03/28/22 16:09 Room Air Recovery Score Activity: Moves 4 extremities Respiration: Deep Breath/Cough Circulation: +/-20% PreAnes Value Consciousness: Fully Awake Oxygen Saturation: > 92% On Room Air Discharge Sedation Level of Care: Fast Track Phase II Post Sedation Plan On clinical assessment, the patient appears to have tolerated the sedation without complications. Patient is recovering as anticipated. Patient will continue to be monitored by nursing and may be discharged when sedation discharge criteria are met per below protocol. Upon Completions of procedure up to 15 minutes continue every 5 minute vital signs and the P.A.R. score; then discharge to a Phase I or Fast Track to Phase II per the following guidelines: * Discharge Patient to appropriate Phase II area if PAR is 8 or greater or return to pre- procedure baseline. The post - procedure orders will be as directed. * If PAR score is less than 8 or not return to pre-procedure baseline then patient will follow Phase I monitoring till PAR is reached for Phase II. The Phase I may be done in procedure room or may call to secure a Phase I area. * If naloxone or flumazenil are used for reversal, hold in Phase I for continued monitoring from when last reversal dose was given for a minimum of 60 minutes or longer pending the nurse and/or physician discretion of patient condition before discharge to Phase II. Please call the Sedation Physician to re-evaluate and complete post-note for discharge to Phase II area. Do NOT discharge from procedure sedation or Phase 1 until post- sedation evaluation note is complete by procedure /sedation MD Sedation Discharge Instructions to be given to the patient at discharge to home.
[2022-03-29] MEDS ORDERED: ONDANSETRON INJ 2 MG/ML 2 ML VIAL ONE (15:39)
[2022-03-29] MEDS ORDERED: DOPamine 400MG / 250ML D5W IV ONE (15:46)
[2022-03-29] MEDS ORDERED: WARFARIN SOD 7.5 MG TAB PO STA (16:23)
--- NOTE | 2022-03-29 16:24 | Hospitalist Progress Note ---
Date of Service March 29, 2022 Assessment & Plan (1) Chronotropic incompetence: (2) Bradycardia: (3) History of aortic valve replacement: (4) MCFP current use of anticoagulant: (5) HLD (hyperlipidemia): (6) Ascending aortic aneurysm: (7) GERD (gastroesophageal reflux disease): Plan This is a 66-year-old male who has significant past medical history of mechanical aortic valve replacement on sports coordinator anticoagulation with goal INR 2.5-3.0, hyperlipidemia, history of SVT, known ascending aortic aneurysm, history of kidney stones who presents to ED at the referral of cardiology due to abnormal heart monitor results. Pt with sx of worsening SOB, easy fatigability, SEBASTIAN and chest pain for the last month or so. He recently underwent ischemic work-up with stress testing and cardiac catheterization which was negative acute occlusion. Outpatient Zio patch improved concern for sinus bradycardia along with probable AV conduction abnormalities. Was referred to ED for evaluation for pacemaker placement. Chronotropic incompetence Sinus bradycardia History of mechanical aortic valve on long-term anticoagulation, goal INR 2.5- 3.0 RBBB Admit to PCU INR 3.5, discussed with cardiology at bedside and will administer 2.5 mg of IV vitamin K INR better this morning PPM placement 03/29/2022 Warfarin home regimen 7.5 mg Friday, 5 mg all other days, follows [facility] pharmacy - resume warfarin tonight 03/29/2022 with 7.5mg - daily INR while inpatient HLD previously on pravastatin, but currently not taking due to lower extremity weakness started CoQ10 instead will defer to cards if they want him to restart his pravastatin post op Glaucoma continue eye gtts Hyperbilirubinemia 1.5 -->1.8 indirect bilirubin - unclear significance at this time no abd pain, lfts otherwise unremarkable - monitor Gerd continue PPI pepcid PRN DVT ppx: pt on warfarin, scds Dispo: PCU FULL CODE PCP: Ubaldo Likely discharge AM 03/30/2022. Admission and Anticipated Discharge Date Admission Date: March 28, 2022 Subjective Patient with mechanical AVR on Coumadin, HLD, h/o SVT, ascending aortic aneurysm presented due to worsening SEBASTIAN and exercise intolerance. Found to have a sinus bradycardia with chronotropic incompetance. Seen by cardiology and is now s/p PPM placement 03/29/2022. Patient was feeling well when not exerting prior to procedure. He denied chest pain, shortness of breath, n/v/d, abdominal pain, dysuria, LOC, dizziness. Review of Systems Review of Systems: All systems reviewed & are unremarkable except as noted in Subjective Physical Exam Physical Exam: Constitutional: WD/WN, vitals as above, NAD, sitting up in bed, pleasant, conversing easily Head: Normocephalic, Atraumatic Eyes: PERRL, conjunctivae normal, anicteric sclerae ENMT: external ear and nose normal, oropharynx normal Neck: trachea midline, no thyromegaly normal visual inspection Respiratory: normal respiratory effort, lungs clear to auscultation, no wheeze, rales, rhonchi. Normal insp/exp effort, no accessory muscle use Cardiovascular: RR bradycardic, +AV mech click, no edema Vessels: no JVD or carotid bruit Chest: normal inspection of chest Abdomen: normal bowel sounds, soft, nontender, no hepatosplenomegaly Musculoskeletal: no cyanosis or clubbing, extremities motor strength 5/5 Skin: no rashes, warm and dry normal turgor Neurologic: PERRL, EOMI, accommodation nl, no face palsy, no dysarthria CN's II-XI intact bilaterally and moves all extremities Psychiatric: A+Ox3, euthymic affect Lymphatic: no cervical or axillary lymphadenopathy : deferred Results & Data Results & Data ([facility]) Vital Signs (Past 12 Hours) Vital Signs Temp Pulse Pulse Resp BP Pulse Ox O2 Del Method 03/29/22 16:01 64 16 110/69 95 Room Air 03/29/22 15:36 71 16 110/77 93 Room Air 03/29/22 14:01 41 L 16 128/74 98 Room Air 03/29/22 11:00 36.5 C 45 L 18 150/79 H 97 03/29/22 08:00 36.4 C L 36 L 16 129/67 95 03/29/22 07:16 58 L Diagnostic Findings Laboratory Results WBC 5.15 K/ul (4.8-10.8) 03/29/22 02:21 RBC 4.79 M/uL (4.63-6.08) 03/29/22 02:21 Hgb 14.3 g/dl (14.0-18.0) 03/29/22 02:21 Hct 41.8 % (40.1-51.0) 03/29/22 02:21 MCV 87.3 fL (80.0-100.0) 03/29/22 02:21 MCH 29.9 pg (25.0-34.0) 03/29/22 02:21 MCHC 34.2 g/dL (32.0-36.0) 03/29/22 02:21 RDW Std Deviation 41.8 fL (36.4-46.3) 03/29/22 02:21 RDW Coeff of Wilver 13.2 % (11.5-14.5) 03/29/22 02:21 Plt Count 166 K/uL (130-400) 03/29/22 02:21 MPV 10.3 fL (9.4-12.4) 03/29/22 02:21 Immature Gran % (Auto) 0.4 % 03/29/22 02:21 Neut % (Auto) 55.7 % 03/29/22 02:21 Lymph % (Auto) 28.2 % 03/29/22 02:21 [place] % (Auto) 12.8 % 03/29/22 02:21 Eos % (Auto) 2.3 % 03/29/22 02:21 Baso % (Auto) 0.6 % 03/29/22 02:21 Neut # (Auto) 2.87 K/uL (1.4-6.5) 03/29/22 02:21 Lymph # (Auto) 1.45 K/uL (1.2-3.4) 03/29/22 02:21 [place] # (Auto) 0.66 K/uL (0.24-0.82) 03/29/22 02:21 Eos # (Auto) 0.12 K/uL (0-0.50) 03/29/22 02:21 Baso # (Auto) 0.03 K/uL (0-0.2) 03/29/22 02:21 Immature Gran # (Auto) 0.02 K/uL (0.00-0.02) 03/29/22 02:21 PT 21.6 Seconds (9.0-12.0) H 03/29/22 02:21 INR 2.1 (0.9-1.1) H 03/29/22 02:21 APTT 40.7 Seconds (21.0-31.0) H 03/28/22 12:55 PTT Ratio 1.5 03/28/22 12:55 Sodium 137 mmol/L (136-145) 03/29/22 02:21 Potassium 3.9 mmol/L (3.5-5.1) 03/29/22 02:21 Chloride 105 mmol/L (98-107) 03/29/22 02:21 Carbon Dioxide 26 mmol/L (21-32) 03/29/22 02:21 Anion Gap 6 (3-11) 03/29/22 02:21 BUN 22 mg/dl (6-23) 03/29/22 02:21 Creatinine 1.04 mg/dl (0.6-1.4) 03/29/22 02:21 Est Cr Clr Drug Dosing 71.1 ml/min 03/29/22 02:21 Est GFR ( Amer) 85.1 ml/min 03/29/22 02:21 Est GFR (Non-Af Amer) 73.4 ml/min 03/29/22 02:21 BUN/Creatinine Ratio 21.2 (10-20) H 03/29/22 02:21 Glucose 81 mg/dl (70-99(Fasting)) 03/29/22 02:21 Calcium 8.7 mg/dl (8.5-10.1) 03/29/22 02:21 Magnesium 2.3 mg/dl (1.7-2.4) 03/29/22 02:21 Total Bilirubin 1.8 mg/dl (0.2-1.0) H 03/29/22 02:21 Direct Bilirubin 0.2 mg/dl (0-0.2) 03/28/22 18:42 AST 20 U/L (13-39) 03/29/22 02:21 ALT 17 U/L (7-52) 03/29/22 02:21 Alkaline Phosphatase 54 U/L (34-104) 03/29/22 02:21 Troponin I High Sens 5.7 pg/ml (0-20) 03/28/22 12:55 Total Protein 7.1 gm/dl (6.0-8.3) 03/29/22 02:21 Albumin 4.1 gm/dl (3.4-5.0) 03/29/22 02:21 Globulin 3.0 gm/dl (2.5-4.0) 03/29/22 02:21 Albumin/Globulin Ratio 1.4 (0.9-2) 03/29/22 02:21 SARS-CoV-2, RNA, NAAT NEGATIVE (NEGATIVE) 03/28/22 14:57 Impressions Chest X-Ray 03/28/22 12:25 XR chest 1V portable HISTORY: Shortness of breath. COMPARISON: Chest 03/03/2019. FINDINGS: There are poststernotomy changes. The cardiac silhouette is mildly enlarged. This remains unchanged. There is a tortuous thoracic aorta. No focal lung consolidations to suggest pneumonia. No evidence for pulmonary edema. No pleural effusions. No pneumothorax. IMPRESSION: No acute process. ACT 112: Negative or not required by law. Electronically signed by: Giovanny Benson M.D. 03/28/2022 2:38 PM Medications Administered Current Inpatient Medications Acetaminophen (Acetaminophen 325 Mg Tab) 650 mg PO Q4H PRN PRN Reason: Pain or Fever Stop: 04/27/22 16:59 Last Admin: 03/29/22 09:48 Dose: 650 mg Al Hydrox/Mg Hydrox/Simethicone (Aluminum/Magnesium Susp 30 Ml Udc) 15 ml PO Q4H PRN PRN Reason: Dyspepsia Stop: 04/27/22 16:59 Cyanocobalamin (Cyanocobalamin (B-12) 500 Mcg Tablet) 500 mcg PO DAILY ABHIJEET Stop: 04/28/22 08:59 Last Admin: 03/29/22 07:29 Dose: 500 mcg Famotidine (Famotidine 20 Mg Tab) 20 mg PO BID PRN PRN Reason: Heartburn Stop: 04/27/22 16:59 Fexofenadine HCl (Fexofenadine Hcl 180 Mg Tab) 180 mg PO DAILY ABHIJEET Stop: 04/28/22 08:59 Last Admin: 03/29/22 07:30 Dose: 180 mg Fluticasone Propionate (Fluticasone Propionate Na Spr 16 Gm Btl) 2 sprays [place] DAILY ABHIJEET Stop: 04/28/22 08:59 Last Admin: 03/29/22 07:30 Dose: 2 sprays Promethazine HCl 6.25 mg/ (Sodium Chloride) 50.25 mls @ 201 mls/hr IV Q6H PRN PRN Reason: Nausea And Vomiting Stop: 04/27/22 17:18 Latanoprost (Latanoprost 0.005% Op Soln 2.5 Ml Btl) 1 drops OP PM ABHIJEET Stop: 04/27/22 20:59 Last Admin: 03/28/22 20:08 Dose: 1 drops Magnesium Hydroxide (Magnesium Hydroxide Susp 30 Ml Udc) 30 ml PO Q12H PRN PRN Reason: Constipation Stop: 04/27/22 16:59 Metoprolol Succinate (Metoprolol Succ 25mg Ext Rel Tab) 25 mg PO QAM ABHIJEET Stop: 04/29/22 08:59 Pantoprazole Sodium (Pantoprazole 40 Mg Tab) 40 mg PO DAILY [facility] Stop: 04/28/22 08:59 Last Admin: 03/29/22 07:31 Dose: 40 mg Polyethylene Glycol (Polyethylene (Miralax) 17 Gm Pack) 17 gm PO DAILY PRN PRN Reason: Constipation Stop: 04/27/22 16:59 Simethicone (Simethicone 80 Mg Chew) 80 mg PO Q6H PRN PRN Reason: bloating, indigestion Stop: 04/27/22 20:18 Tamsulosin HCl (Tamsulosin Hcl 0.4 Mg Cap) 0.4 mg PO DAILY [facility] Stop: 04/28/22 08:59 Last Admin: 03/29/22 07:31 Dose: 0.4 mg Warfarin Sodium (Warfarin Sod 7.5 Mg Tab) 7.5 mg PO ONE ONE Stop: 03/29/22 18:01
[2022-03-29] MEDS ORDERED: WARFARIN SOD 7.5 MG TAB PO ONE (18:00)
--- NOTE | 2022-03-29 18:02 | XRay Report ---
XR chest 1V portable CLINICAL HISTORY: s/p ppm TECHNIQUE: Single frontal radiograph of the chest was obtained. Comparison: Comparison is made to chest radiograph 03/28/2022 FINDINGS: Median sternotomy wires are unchanged. Interval placement of dual-lead pacemaker. Cardiomegaly is see n. The lungs are clear. No evidence of pleural effusion or pneumothorax. IMPRESSION: Interval placement of dual-lead pacemaker without evidence of pneumothorax. The leads are in satisfac tory position. ACT 112: Negative or not required by law. Electronically signed by: Jesus Manuel Villatoro M.D. 03/29/2022 6:00 PM
[2022-03-29] MEDS: LATANOPROST 0.005% OP SOLN 2.5 ML BTL OP SCH (20:51)
[2022-03-29] MEDS ORDERED: oxyCODONE HCL IR 5 MG TAB (IMMEDIATE RELEASE) PO STA (21:19)
--- NOTE | 2022-03-29 21:49 | Electrocardiogram Report ---
Test Reason : Blood Pressure : / mmHG Vent. Rate : 059 BPM Atrial Rate : 059 BPM P-R Int : 260 ms QRS Dur : 146 ms QT Int : 506 ms P-R-T Axes : 042 -39 009 degrees QTc Int : 500 ms Sinus bradycardia with 1st degree A-V block Left axis deviation Right bundle branch block Septal infarct , age undetermined Abnormal ECG When compared with ECG of 28-MAR-2022 12:42, Septal infarct is now Present 1st degree AV block has replaced 2:1 AV block Confirmed by Avinash Valderrama ([id number]) on 03/29/2022 9:49:13 PM Referred By: Wilian Lopez Confirmed By:Avinash Valderrama
[2022-03-30] MEDS: ACETAMINOPHEN 325 MG TAB PO PRN (04:20)
[2022-03-30 06:40] LABS: Basophils # (auto) 0.02 K/uL (0-0.2); Basophils % (auto) 0.3 %; Eosinophils # (auto) 0.05 K/uL (0-0.50); Eosinophils % (auto) 0.7 %; Hematocrit (blood only) 41.9 % (40.1-51.0); Hemoglobin 14.7 g/dl (14.0-18.0); Immature Granulocytes # (auto) 0.02 K/uL (0.00-0.02); Immature Granulocytes % (auto) 0.3 %; Lymphocytes # (auto) 0.62 K/uL (1.2-3.4); Lymphocytes % (auto) 8.6 %; Mean Corpuscular Hemoglobin 30.3 pg (25.0-34.0); Mean Corpuscular Hgb Conc 35.1 g/dL (32.0-36.0); Mean Corpuscular Volume 86.4 fL (80.0-100.0); Mean Platelet Volume 10.1 fL (9.4-12.4); Monocytes # (auto) 0.77 K/uL (0.24-0.82); Monocytes % (auto) 10.7 %; Neutrophils % (auto) 79.4 %; Platelet Count 161 K/uL (130-400); RDW Coefficient of Variation 13.1 % (11.5-14.5); RDW Standard Deviation 40.9 fL (36.4-46.3); Red Blood Count 4.85 M/uL (4.63-6.08); White Blood Count 7.18 K/ul (4.8-10.8)
[2022-03-30 06:48] LABS: INR 1.2 (0.9-1.1); Prothrombin Time 13.1 Seconds (9.0-12.0)
--- NOTE | 2022-03-30 06:55 | Electrocardiogram Report ---
Test Reason : Blood Pressure : / mmHG Vent. Rate : 036 BPM Atrial Rate : 036 BPM P-R Int : 234 ms QRS Dur : 150 ms QT Int : 516 ms P-R-T Axes : 044 -35 -02 degrees QTc Int : 399 ms Marked sinus bradycardia with 2:1 AV block Left axis deviation Right bundle branch block Abnormal ECG When compared with ECG of 29-MAR-2022 05:47, Vent. rate has decreased BY 23 BPM Criteria for Septal infarct are no longer Present 2:1 AV block has replaced 1st degree AV block Confirmed by Avinash Valderrama ([id number]) on 03/29/2022 9:51:51 PM Also confirmed by Avinash Valderrama ([id number]), editorial cartoonist ARUN TRINH ([id number] on 03/30/2022 6:55:35 AM Referred By: Wilian Lopez Confirmed By:Avinash Valderrama
--- NOTE | 2022-03-30 07:14 | Electrocardiogram Report ---
Test Reason : Blood Pressure : / mmHG Vent. Rate : 065 BPM Atrial Rate : 065 BPM P-R Int : 152 ms QRS Dur : 158 ms QT Int : 496 ms P-R-T Axes : 030 -43 116 degrees QTc Int : 515 ms Atrial-sensed ventricular-paced rhythm Abnormal ECG When compared with ECG of 29-MAR-2022 07:36, Electronic ventricular pacemaker has replaced Sinus rhythm Vent. rate has increased BY 29 BPM Confirmed by Rebel Hale ([id number]) on 03/30/2022 7:14:19 AM Referred By: Wilian Lopez Confirmed By:Daryl Hale
--- NOTE | 2022-03-30 07:22 | Electrocardiogram Report ---
Test Reason : Blood Pressure : / mmHG Vent. Rate : 065 BPM Atrial Rate : 065 BPM P-R Int : 154 ms QRS Dur : 150 ms QT Int : 498 ms P-R-T Axes : 042 -26 121 degrees QTc Int : 517 ms Atrial-sensed ventricular-paced rhythm Abnormal ECG When compared with ECG of 29-MAR-2022 18:09, (unconfirmed) Vent. rate has decreased BY 9 BPM Confirmed by Rebel Hale ([id number]) on 03/30/2022 7:22:11 AM Referred By: Wilian Lopez Confirmed By:Daryl Hale
--- NOTE | 2022-03-30 07:27 | Electrocardiogram Report ---
Test Reason : Blood Pressure : / mmHG Vent. Rate : 074 BPM Atrial Rate : 074 BPM P-R Int : 146 ms QRS Dur : 156 ms QT Int : 462 ms P-R-T Axes : 000 041 062 degrees QTc Int : 512 ms Atrial-sensed ventricular-paced rhythm Abnormal ECG When compared with ECG of 29-MAR-2022 15:42, (unconfirmed) Vent. rate has increased BY 9 BPM Confirmed by Rebel Hale ([id number]) on 03/30/2022 7:26:44 AM Referred By: Wilian Lopez Confirmed By:Daryl Hale
[2022-03-30] MEDS ORDERED: METOPROLOL SUCC 25MG EXT REL TAB PO SCH (09:00)
[2022-03-30] MEDS: PANTOprazole 40 MG TAB PO SCH (09:14)
[2022-03-30] MEDS: TAMSULOSIN HCL 0.4 MG CAP PO SCH (09:14)
[2022-03-30] MEDS: CYANOCOBALAMIN (B-12) 500 MCG TABLET PO SCH (09:14)
[2022-03-30] MEDS: FLUTICASONE PROPIONATE NA SPR 16 GM BTL NAE SCH (09:15)
[2022-03-30] MEDS: FEXOFENADINE HCL 180 MG TAB PO SCH (09:15)
[2022-03-30] MEDS ORDERED: oxyCODONE HCL IR 5 MG TAB (IMMEDIATE RELEASE) PO PRN ×2 (09:23→09:24)
[2022-03-30] MEDS ORDERED: NAPROXEN 375 MG TAB PO PRN (09:24)
[2022-03-30] MEDS ORDERED: ENOXAPARIN 100 MG/1ML SYR SQ SCH (10:00)
--- NOTE | 2022-03-30 11:13 | Cardiology Progress Note ---
Date of Service March 30, 2022 Assessment & Plan (1) Bradycardia: (2) Chronotropic incompetence: (3) History of aortic valve replacement: (4) Ascending aortic aneurysm: Plan Patient is a 66-year-old male with longstanding cardiac issues including prior remote aortic valve replacement with mechanical prosthesis functioning normally. Patient's had recent symptoms of marked fatigue exertional dyspnea and findings consistent with chronotropic incompetence, symptomatic bradycardia as well as intermittent AV block on recent event monitor. s/p Dual chamber ppm placement functioning appropriately chest xray showed appropriate placement will d/c to home my office will call to arrange pocket and device check this week Admission and Anticipated Discharge Date Admission Date: March 28, 2022 Subjective Pt seen and examined. Chart reviewed. Telemetry reviewed. Device checked. Chest xray reviewed. Review of Systems Review of Systems: All systems reviewed & are unremarkable except as noted in HPI & below Physical Exam Physical Exam: General: Awake, alert and oriented x 3. No acute distress. HEENT: Normocephalic, atraumatic. Pupils equal, round and reactive to light and accommodation. Extraocular muscles are intact. Anicteric sclera. Moist mucous membranes. Neck: No JVD. No bruit. Cardiovascular: Regular. Positive S-4. Normal S-1 and S-2. No S-3. No murmurs or rubs. Pulmonary: Clear to auscultation B/L. No rales, rhonchi or wheezing Abdomen: Bowel sounds x 4, soft. No rebound, guarding or tenderness. No organomegaly. Extremities: No clubbing, cyanosis or edema. +2 pedal pulses bilaterally. Skin: Warm and dry. Results & Data ([facility]) Vital Signs (Past 12 Hours) Vital Signs Temp Pulse Pulse Resp BP Pulse Ox O2 Del Method 03/30/22 08:08 36.7 C 65 16 124/79 93 Room Air 03/30/22 07:09 66 03/30/22 03:34 36.7 C 74 18 126/74 94 Room Air 03/29/22 23:14 77 03/29/22 23:09 36.7 C 72 20 128/78 92 Room Air
--- NOTE | 2022-03-30 14:08 | Discharge Summary ---
Date of Service March 30, 2022 Admission HPI Per Admitting Provider This is a 66-year-old male who has significant past medical history of mechanical aortic valve replacement on half-way anticoagulation with goal INR 2.5-3.0, hyperlipidemia, history of SVT, known ascending aortic aneurysm, history of kidney stones who presents to ED at the referral of cardiology due to abnormal heart monitor results. Patient has been experiencing increasing shortness of breath, bradycardia, easy fatigability and dyspnea on exertion. He has been following cardiology and underwent stress testing which showed decreased heart rate response to exercise and also possible ischemia. He then underwent cardiac catheterization which revealed widely patent coronary arteries with minor luminal irregularities. Post cardiac catheterization he was titrated off of his metoprolol which he is now completely off of. Since his heart catheterization he continues to experience episodes of bradycardia with heart rates mostly in the 40s with associated increased fatigue and shortness of breath. He also complains of increased indigestion and belching and is wondering if this is related. He further complains of lower extremity muscle weakness after initiation of pravastatin and this was discontinued in favor of co-Q10. A Zio patch was placed and after further review revealed episodes of AV conduction abnormalities. Because of this he was referred to ED for possible evaluation for pacemaker placement. In ED he did remain hemodynamically stable although he was bradycardic. Blood pressure was mildly elevated. His CBC and CMP was generally unremarkable, Mag was 1.9. Chest x-ray showed no acute process. EKG revealed sinus bradycardia at 46 bpm with right bundle branch block. Admission Exam Per Admitting Provider Constitutional: WD/WN, vitals as above, NAD, sitting up in bed, pleasant, conversing easily Head: Normocephalic, Atraumatic Eyes: PERRL, conjunctivae normal, anicteric sclerae ENMT: external ear and nose normal, oropharynx normal Neck: trachea midline, no thyromegaly normal visual inspection Respiratory: normal respiratory effort, lungs clear to auscultation, no wheeze, rales, rhonchi. Normal insp/exp effort, no accessory muscle use Cardiovascular: RRR, +AV mech click, no edema Vessels: no JVD or carotid bruit Chest: normal inspection of chest Abdomen: normal bowel sounds, soft, nontender, no hepatosplenomegaly Musculoskeletal: no cyanosis or clubbing, extremities motor strength 5/5 Skin: no rashes, warm and dry normal turgor Neurologic: PERRL, EOMI, accommodation nl, no face palsy, no dysarthria CN's II-XI intact bilaterally and moves all extremities Psychiatric: A+Ox3, euthymic affect Lymphatic: no cervical or axillary lymphadenopathy : deferred Principal Diagnosis symptomatic bradycardia with chronotropic incompetence Discharge Exam Constitutional: WD/WN, vitals as above, NAD, sitting up in bed, pleasant, conversing easily Head: Normocephalic, Atraumatic Eyes: PERRL, conjunctivae normal, anicteric sclerae ENMT: external ear and nose normal, oropharynx normal Neck: trachea midline, no thyromegaly normal visual inspection Respiratory: normal respiratory effort, lungs clear to auscultation, no wheeze, rales, rhonchi. Normal insp/exp effort, no accessory muscle use Cardiovascular: RRR - paced, +AV mech click, no edema Vessels: no JVD or carotid bruit Chest: left upper chest dressing c/d/i without blood seepage or drainage Abdomen: normal bowel sounds, soft, nontender, no hepatosplenomegaly Musculoskeletal: no cyanosis or clubbing, extremities motor strength 5/5 Skin: no rashes, warm and dry normal turgor Neurologic: PERRL, EOMI, accommodation nl, no face palsy, no dysarthria CN's II-XI intact bilaterally and moves all extremities Psychiatric: A+Ox3, euthymic affect Lymphatic: no cervical or axillary lymphadenopathy Discharge Data Allergies Allergy/AdvReac Type Severity Reaction Status Date / Time Opsnhyf-XFM-DwH Reductase AdvReac Weakness Unverified 12/03/19 17:04 Inhibitor [Iupynkh-Wji-Ntj Reductase Inhibitor] Consultations 03/28/22 14:33 ED Decision to Admit Stat 03/28/22 14:56 Consult Cardiology Routine Procedures Performed Operation Date: 03/29/22 14:00 Actual Procedures s Bundle of his Recording - Morales Dowling MD s Venogram, Unilateral - Morales Dowling MD p Pacer with A/V Leads (Dual) - Radha Menjivar DO Ordered Studies 03/29/22 07:00 EP Lab Images for PACS ONCE Hospital Course (1) Chronotropic incompetence: (2) Bradycardia: (3) History of aortic valve replacement: (4) intermediate frame tender current use of anticoagulant: (5) HLD (hyperlipidemia): (6) Ascending aortic aneurysm: (7) GERD (gastroesophageal reflux disease): Plan This is a 66-year-old male who has significant past medical history of mechanical aortic valve replacement on middle or intermediate school principal anticoagulation with goal INR 2.5-3.0, hyperlipidemia, history of SVT, known ascending aortic aneurysm, history of kidney stones who presents to ED at the referral of cardiology due to abnormal heart monitor results. Pt with sx of worsening SOB, easy fatigability, SEBASTIAN and chest pain for the last month or so. He recently underwent ischemic work-up with stress testing and cardiac catheterization which was negative acute occlusion. Outpatient Zio patch improved concern for sinus bradycardia along with probable AV conduction abnormalities. Was referred to ED for evaluation for pacemaker placement. Chronotropic incompetence Sinus bradycardia History of mechanical aortic valve on long-term anticoagulation, goal INR 2.5- 3.0 RBBB Admit to PCU INR 3.5, discussed with cardiology at bedside and will administer 2.5 mg of IV vitamin K INR better this morning s/p PPM placement 03/29/2022 - tolerated well and functioning appropriately Warfarin home regimen 7.5 mg Friday, 5 mg all other days, follows [facility] pharmacy - resume warfarin tonight 03/29/2022 with 7.5mg - bridge with lovenox outpatient as INR was <2 and follow up with [facility] clinic [place] for discharge home with Cardiology follow up, coagulation follow up and bridging with lovenox to get INR in therapeutic range HLD previously on pravastatin, but currently not taking due to lower extremity weakness started CoQ10 instead will defer to cards if they want him to restart his pravastatin post op Glaucoma continue eye gtts Hyperbilirubinemia 1.5 -->1.8 indirect bilirubin - unclear significance at this time no abd pain, lfts otherwise unremarkable - monitor Gerd continue PPI pepcid PRN DVT ppx: pt on warfarin, scds Total Time Total Time Spent Total Time Spent (In Minutes): 35 Total Time Includes: Examination of the Patient, Discharge Planning, Medication Reconciliation and Communication With Other Providers Discharge Plan Discharge Items Patient Disposition: Home - Self-Care Reason For Visit: CHEST PAIN, 2:1 AV BLOCK Discharge Diagnosis: symptomatic bradycardia Activity: As commented below Activity Comment: do not raise your left elbow over the left shoulder for 1 month Lifting: No more than 10 pounds Lifting Comment: do not lift more than 10 pounds with the left arm for 2 weeks Bathing: Keep incision dry Bathing Comment: keep dressing on & dry until wound check next week Non-emergency contact: Primary Care Provider and Logistics Clerk Call non-emergency contact if: you have any medication questions and your symptoms worsen Follow-up/Referrals: Wilian Lopez DO [Physician] - Kiley Conner DO [Primary Care Provider] - Diet: Heart Healthy Addtl Attending Provider Instructions: device and wound check at [facility] on Thursday 04/05 at 1:30pm If you notice any swelling at the incision site call [facility] immediately Pending Studies at Discharge: No Stand-Alone Forms: My [facility] [employer], Smoking Cessation Medications and DC Order Prescriptions: New enoxaparin 100 mg/mL Syringe 90 mg subcut Q12H Qty: 20 0RF metoprolol succinate 25 mg Tablet Extended Release 24 Hr 25 mg PO QAM Qty: 30 0RF naproxen 375 mg Tablet 375 mg PO BID PRN (Reason: moderate pain (scale score 5-6)) Qty: 10 0RF oxycodone 5 mg Tablet 5 mg PO Q8 PRN (Reason: severe pain (scale score 7-10)) Qty: 7 0RF polyethylene glycol 3350 [Miralax] 17 gram Powder In Packet 17 g PO DAILY PRN (Reason: constipation) Qty: 14 0RF Continued amoxicillin 500 mg capsule 2,000 mg PO UD PRN (Reason: dental work) latanoprost 0.005 % Drops 1 drp OPHTHALMIC (EYE) PM fexofenadine 180 mg Tablet 180 mg PO DAILY triamcinolone acetonide 0.1 % cream 0.1 applic TOPICAL BID PRN (Reason: Rash) pantoprazole 20 mg Tablet,Delayed Release (Dr/Ec) 20 mg PO DAILY famotidine [Pepcid AC] 20 mg Tablet 20 mg PO BID PRN (Reason: Heartburn) cyanocobalamin (vitamin B-12) [Vitamin B-12] 500 mcg Tablet 500 mcg PO DAILY tamsulosin 0.4 mg capsule 0.4 mg PO DAILY warfarin 5 mg tablet 5 mg PO SUTUTHSA warfarin 5 mg tablet 7.5 mg PO MOWEFR@1600 fluticasone propionate 50 mcg/actuation spray,suspension 2 spray INTRANASAL DAILY coenzyme Q10 [Co Q-10] 200 mg Capsule 200 mg PO DAILY Discharge Orders: Discharge Order (Routine); Ordered 03/30/22 Ordered By: Julio Marcelino/Other Patient Handouts: Living with a Pacemaker, Pacemaker Implant Dc Admission Data Admit Date/Time: 03/28/22 14:56 Attending Provider: Julio Salinas Admit Provider: Nav Michael Primary Care Provider: Kiley Conner Other Providers: Timoteo Gee ; Nav Michael Other Interventions: Discharge Summary Assessment (RN) Last Done: 03/30/22 12:42
--- NOTE | 2022-04-03 13:35 | Operative Report (OR) ---
DATE OF PROCEDURE: 03/29/2022. PREOPERATIVE DIAGNOSIS: Intermittent complete heart block. POSTOPERATIVE DIAGNOSIS: Intermittent complete heart block. PROCEDURE: Dual-chamber rate responsive permanent pacemaker under fluoroscopic guidance along with p eripheral venogram. SURGEON: Radha Menjivar DO. DAMPENER: None. ANESTHESIA: Monitored conscious sedation administered under my supervision by Bernie Mendez. Sta rt time 1434, end time 1530. Total of 2 mg of Versed and 75 mcg of fentanyl. INTRAVENOUS FLUIDS: 45 mL. ANTIBIOTICS: 2 grams of Ancef. BLOOD LOSS: 40 mL URINE OUTPUT: Not applicable. SPECIMENS: None. FINDINGS: See below. DRAINS: None. COMPLICATIONS: None. CONDITION: Stable. INDICATIONS: This is a 66-year-old gentleman who has a past medical history for a mechanical AVR in 1989, minimal nonobstructive CAD by catheterization in 02/2022, right bundle-branch block, dilated as cending aorta, and intermittent complete heart block, so he was recommended a pacemaker. CONSENT: Consent was obtained prior to the patient going into electrophysiology lab. The patient wa s informed of risks, benefits, and alternatives to the procedure. Risks include, but not limited to, sudden cardiac , cardiac arrhythmias, cerebrovascular accident, myocardial infarction, injury t o blood vessels, chamber of the heart and lung, bleeding and infection. The patient understood these risks and agreed to the procedure as planned. Informed consent was obtained. DESCRIPTION OF PROCEDURE: The patient was brought into electrophysiology lab in a fasting state. He was connected to continuous cardiac monitoring and timeout was performed to ensure patient identity and procedure correctly. He was prepped and draped over the left infraclavicular space in normal leigha gical standard fashion. Monitored conscious sedation was given throughout the procedure for patient' s comfort level. [place] precautions were maintained throughout the procedure. 10 mL of 1% lidocaine-bupivacaine mixture were given in the left deltopectoral groove. An incision w as made in the left deltopectoral groove. Blunt dissection was performed down to the pectoralis musc le. Then, using blunt dissection over the pectoralis muscle and then the pectoralis fascia pacemaker pocket was created. Then, a peripheral venogram was performed to identify the axillary vein. Venou s axillary access was obtained through a needlestick without any problems. A 7-Congolese sheath was ins erted over the guidewire without any resistance. Dilator was removed. A second guidewire was insert ed through the sheath to allow for retained venous access. Sheath was removed, flushed, reinserted o robin the dilator, then reinserted over one of the guidewires. The guidewire and dilator were removed and the right atrial lead was temporarily placed in the right ventricular apex under fluoroscopic guidance to have backup pacing while we were positioning the left bundle lead. Then, a second 7-Congolese sheath was inserted over the retained guidewire, the guidewire and dilator re moved. The His C315 sheath was then advanced through the 7-Congolese sheath over a Glidewire into the r ight ventricle. The Glidewire and dilator removed. Then, the pacing lead was then advanced through the His C315 sheath and intracardiac electrogram His bundle recordings was attempted with the camera in FREEMAN 10. However, I never saw a clear His, but I had an idea of where one was based on my A:V rati o, so I moved the camera into FREEMAN 30 and marked where this His bundle area that I thought was on my f luoroscopy screens and then came down about 2 cm from this in a line that would extend out to the ape x to position the bundle lead. I came on pacing and I had a nice W formed pace complex in V1, so the n I moved the camera to FLORENCIO 30, started giving a series of clockwise turns to screw the lead into the septum pausing every once in a while to see how my pacing complex changed. Eventually I developed a nice R prime in V1, I gave contrast through the sheath to see how I was well into the septum and I h ad a nice impedance drop. I then flipped the His C315 sheath under fluoroscopic guidance. I left the 7-Congolese sheath in while I positioned the right atrial lead. The right atrial lead that was temporarily placed in the right ventricular apex. Screw was retracted and then it was placed in the right atrial appendage under fluoroscopic guidance. There was adequat e pacing and sensing thresholds. I did have to reposition it one time because it did dislodged and I ended up using a pruitt preformed J curve. There was adequate pacing and sensing thresholds and no di aphragmatic stimulation with high output pacing. The 7-Congolese sheath around the right atrial lead wa s peeled away and the lead was fixated to pectoralis muscle using 0 silk suture. A 7-Congolese sheath around the bundle lead was then peeled away and the lead was fixated to pectoralis muscle using 0 silk suture. The pocket was then flushed with copious amounts of vancomycin and saline wash and inspected for hemo stasis. The leads were then attached to the pulse generator making sure the pins were in appropriate position, passed set screws, and set screws were all tightened. Pulse generator was then placed in the antibiotic pouch followed then by being placed in the pocket, making sure the leads were lying fl at beneath the device. The incision was closed in a 3-layer fashion with 2-0 Vicryl interrupted sutu re, followed by 3-0 Vicryl interrupted suture, followed by 4-0 Monocryl running stitch and Dermabond was applied followed by Telfa and Tegaderm dressing. EQUIPMENT: 1. Pulse generator is a [employer] [place] XT DR BRIANA Barbosa [id number], serial number [id number]. 2. TYRX pouch, reference [id number], lot number [id number]. 3. Right atrial lead, Medtronic 5076-52 cm, serial number [id number]. 4. Left bundle lead, Medtronic 3830-69 cm, serial number [id number]. INTRAOPERATIVE TESTIN. Right atrial lead, P waves 2.6 millivolts, impedance 660 ohms, threshold 0.4 volts at 0.5 millise conds. 2. Left bundle lead, R waves 9.2 millivolts, impedance 826 ohms, threshold 0.5 volts at 0.6 millisec onds. FINAL MEASUREMENTS THROUGH THE DEVICE. 1. Right atrial lead, P waves 3.5 millivolts, impedance 589 ohms, threshold 0.5 volts at 0.4 millise conds. 2. Left bundle lead, R waves 17.1 millivolts, impedance 703 ohms, threshold 0.5 volts at 0.4 millise conds. FINAL PARAMETERS: DDDR 60/140, right atrial amplitude 3.5 volts, pulse width 0.4 milliseconds, sensi tivity 0.3 millivolts. The left bundle lead amplitude 3.5 volts, pulse width 0.4 milliseconds, sensi tivity 0.9 millivolts. IMPRESSION: Successful dual chamber rate responsive permanent pacemaker under fluoroscopic guidance along with peripheral venogram secondary to intermittent complete heart block. PLAN: Monitor the patient post-procedure. A 12-lead ECG, chest x-ray. He cannot lift the left elbo w or left shoulder for 1 month. He cannot lift more than 10 pounds with left arm for 2 weeks. He is to keep the dressing on and dry until his wound check next week and we can start him on metoprolol. Job ID: [id number]
== END 2022-03-30 13:58 | disposition home or self-care (01) | DRG 244 ==
LOC: ED 12:03 → 2S 14:56 → SUATTDRO 14:56 → 2S 16:23